=== PATIENT | male | born 1990 | race Two or more races ===

== ENCOUNTER 2021-12-08 13:34 | Emergency (ER) | payer MEDICAID, OTHER ==
[~2021-12-08] VITALS: Ht 170.2 cm; Wt 121.7 kg
[2021-12-08 14:29] VITALS: BP 118/87
[2021-12-08] MEDS ORDERED: ketorolac trometh inj. 60 MG/2 ML VIAL IM ONE (17:40)
== END 2021-12-08 17:57 | disposition home or self-care (01) ==
LOC: ER 13:35
DX: M54.32 Sciatica, left side (principal); M79.605 Pain in left leg; R20.2 Paresthesia of skin; Z60.2 Problems related to living alone
CPT/HCPCS: 99282